=== PATIENT | male | born 1995 | race Hispanic/Latino ===

== ENCOUNTER 2016-12-20 12:16 | Emergency (ER) | payer SELFPAY ==
--- NOTE | 2016-12-20 12:33 | EDM.PDOC ---
ED HPI Trauma - General Chief Complaint: Lower Extremity Injury/Pain Stated Complaint: FOOT Time Seen by Provider: 12/20/16 12:19 - History of Present Illness INITIAL COMMENTS - FREE TEXT/NARRATIVE: HISTORY AND PHYSICAL: History of present illness: Patient's 21-year-old male that concern of 3 days status post right ankle/foot injury he denies other trauma or concern Review of systems: As per history of present illness and below otherwise all systems reviewed and negative. Past medical history: As per history of present illness and as reviewed below otherwise noncontributory. Surgical history: As per history of present illness and as reviewed below otherwise noncontributory. Social history: No reported history of drug or alcohol abuse. Family history: As per history of present illness and as reviewed below otherwise noncontributory. Physical exam: HEENT: Atraumatic, normocephalic, pupils reactive, negative for conjunctival pallor or scleral icterus, mucous membranes moist, throat clear, neck supple, nontender, trachea midline. Lungs: Clear to auscultation, breath sounds equal bilaterally, chest nontender. Heart: S1S2, regular, negative for clicks, rubs, or JVD. Abdomen: Soft, nondistended, nontender. Negative for masses or hepatosplenomegaly. Negative for costovertebral tenderness. Pelvis: Stable nontender. Genitourinary: Deferred. Rectal: Deferred. Extremities: No bony tenderness no point tenderness Achilles tendon intact CMS and neurovascular exam normal Neuro: Awake, alert, oriented. Cranial nerves II through XII unremarkable. Cerebellum unremarkable. Motor and sensory unremarkable throughout. Exam nonfocal. Diagnostics: X-ray right foot/ankle Therapeutics: None Impression: #1 acute right foot/ankle injury Definitive disposition and diagnosis as appropriate pending reevaluation and review of above. Allergies/ADRs: Allergies No Known Allergies Allergy (Verified 12/20/16 12:23) Home Medications: Ambulatory Orders . [No Known Home Meds] 12/20/16 [Confirmed 12/20/16] Past Medical History HEENT History: Reports: None Cardiovascular History: Reports: None Respiratory History: Reports: None Gastrointestinal History: Reports: None Genitourinary History: Reports: None Musculoskeletal History: Reports: None Neurological History: Reports: None Psychiatric History: Reports: None Endocrine/Metabolic History: Reports: None Hematologic History: Reports: None Oncologic (Cancer) History: Reports: None Dermatologic History: Reports: None - Infectious Disease History Infectious Disease History: Reports: None - Past Surgical History Head Surgeries/Procedures: Reports: None Musculoskeletal Surgical History: Reports: None Social & Family History - Family History Family Medical History: Noncontributory - Tobacco Use Smoking Status *Q: Never Smoker - Caffeine Use Caffeine Use: Reports: Coffee - Recreational Drug Use Recreational Drug Use: No Review of Systems - Review of Systems Review Of Systems: ROS reveals no pertinent complaints other than HPI. Trauma Exam - Physical Exam Exam: See Below (see dictation) Course - Vital Signs Last Recorded V/S: Last Vital Signs Temp 36.8 C 12/20/16 12:23 Pulse 104 H 12/20/16 12:23 Resp 16 12/20/16 12:23 BP 166/94 H 12/20/16 12:23 Pulse Ox - Orders/Labs/Meds Orders: Active Orders 24 hr Category Date Time Status Ankle Min 3V Rt [CR] Stat Exams 12/20/16 12:28 Ordered Foot Comp Min 3V Rt [CR] Stat Exams 12/20/16 12:29 Ordered Departure - Departure Time of Disposition: 12:32 Disposition: Home, Self-Care 01 Condition: good Clinical Impression: Ankle injury, Foot injury Forms: ED Department Discharge Additional Instructions: The following information is given to patients seen in the emergency department who are being discharged to home. This information is to outline your options for follow-up care. We provide all patients seen in our emergency department with a follow-up referral. The need for follow-up, as well as the timing and circumstances, are variable depending upon the specifics of your emergency department visit. If you don't have a primary care physician on staff, we will provide you with a referral. We always advise you to contact your personal physician following an emergency department visit to inform them of the circumstance of the visit and for follow-up with them and/or the need for any referrals to a consulting specialist. The emergency department will also refer you to a specialist when appropriate. This referral assures that you have the opportunity for followup care with a specialist. All of these measure are taken in an effort to provide you with optimal care, which includes your followup. Under all circumstances we always encourage you to contact your private physician who remains a resource for coordinating your care. When calling for followup care, please make the office aware that this follow-up is from your recent emergency room visit. If for any reason you are refused follow-up, please contact the [facility] emergency department at and asked to speak to the emergency department charge nurse. Followup primary medical doctor within 2 days Motrin/Tylenol as directed return as needed as discussed - My Orders Last 24 Hours: My Active Orders 12/20/16 12:28 Ankle Min 3V Rt [CR] Stat 12/20/16 12:29 Foot Comp Min 3V Rt [CR] Stat - Assessment/Plan Last 24 Hours: My Active Orders 12/20/16 12:28 Ankle Min 3V Rt [CR] Stat 12/20/16 12:29 Foot Comp Min 3V Rt [CR] Stat
[2016-12-20 13:09] VITALS: BP 127/72
--- NOTE | 2016-12-21 18:03 | CR ---
EXAM DATE: 12/20/16 PATIENT'S AGE: 21 Patient: ARABELLA BECKER Facility: [place], [place] Site . Site : 1995 Study: XRay Extremity Right [id number]/29/2017 12:45:26 PM Ordering Physician: Jose Dejesus Final Report: INDICATION: Foot injury. Technique: Three views of the right foot. Findings: There is no acute fracture or dislocation. Joint spaces are maintained. Soft tissues are unremarkable. Impression: Negative right foot. Dictated by Sena Jacobson MD @ Dec 20 2016 12:47PM (Electronic Signature) Report Signed by Proxy. DEE
--- NOTE | 2016-12-21 18:06 | CR ---
EXAM DATE: 12/20/16 PATIENT'S AGE: 21 Patient: ARABELLA BECKER Facility: [place], [place] Site . Site : 1995 Study: XRay Extremity Right [id number]/29/2017 12:45:51 PM Ordering Physician: Jose Dejesus Final Report: INDICATION: Ankle injury. Technique: Three views of the right ankle. Findings: No acute fracture or dislocation. The mortise is uniform. Soft tissue swelling about the lateral malleolus. 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 Impression: 1. No acute bony abnormality. 2. Lateral soft tissue swelling. 3. 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 Dictated by Sena Jacobson MD @ Dec 20 2016 12:46PM (Electronic Signature) Report Signed by Proxy. DEE
== END 2016-12-20 13:01 | disposition home or self-care (01) ==
LOC: MW.ED 12:16
DX: S99.911A Unspecified injury of right ankle, initial encounter (principal); S99.921A Unspecified injury of right foot, initial encounter; X58.XXXA Exposure to other specified factors, initial encounter
CPT/HCPCS: 73610-26-RT; 73610-RT; 73630-26-RT; 73630-RT; 99282; 99283